=== PATIENT | female | born 2005 | race Native Hawaiian/Other Pacific Islander ===

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

== ENCOUNTER 2023-02-14 11:02 | Emergency (ER) | payer OTHER ==
[~2023-02-14] VITALS: Ht 165.1 cm; Wt 63.5 kg
[~2023-02-14 11:02] MED LIST: Amoxicillin500 M1 PO; BENMENLOZ PO; VALA500 PO
[2023-02-14 11:30] VITALS: BP 118/86
[2023-02-14] MEDS ORDERED: CLIN300 PO (15:06)
== END 2023-02-14 15:11 | disposition home or self-care (01) ==
LOC: ER 11:02
DX: J02.9 Acute pharyngitis, unspecified (principal); Z98.890 Other specified postprocedural states
CPT/HCPCS: 99282

== ENCOUNTER → 2024-09-23 | Outpatient (CLI) | payer OTHER ==
[~2024-09-23] MED LIST changes: +CLIN300 PO
[2024-09-23 10:21] LABS: Source, Urine Voided
[2024-09-23 11:18] LABS: Bilirubin, Urine Neg (Neg); Glucose Qualitative, Urine Neg (Neg); Ketones, Urine Neg (Neg); Leukocyte Esterase, Urine 3+ (Neg); Protein, Urine 2+ (Neg); Specific Gravity, Urine 1.010 (1.003-1.022); Urobilinogen, Urine NORM (Normal)
[2024-09-23 12:00] LABS: Color, Urine Pale Yellow (P-Yellow)
[2024-09-23 12:01] LABS: White Blood Cells, Urine 25-50 /hpf (0-5)
== END ==
LOC: LAB SHORT 10:19 → LAB 10:19
PROVIDERS: Advanced Practice Midwife
DX: R39.9 Unspecified symptoms and signs involving the genitourinary system (principal)
CPT/HCPCS: 81001; 87077; 87086; 87186

== ENCOUNTER → 2024-11-08 | Outpatient (CLI) | payer OTHER ==
[2024-11-10 11:36] LABS: C. TRACHOMATIS BY TMA,THINPREP Negative (Negative); N. GONORRHOEAE BY TMA,THINPREP Negative (Negative)
== END ==
LOC: LAB 12:34 → LAB SHORT 12:34
PROVIDERS: Advanced Practice Midwife
DX: Z11.3 Encounter for screening for infections with a predominantly sexual mode of transmission (principal)
CPT/HCPCS: 87491; 87591; G0145

== ENCOUNTER → 2024-11-19 | Outpatient (CLI) | payer OTHER ==
[2024-11-19 18:17] LABS: Source, Urine Clean Catch
[2024-11-19 19:27] LABS: Bilirubin, Urine Neg (Neg); Glucose Qualitative, Urine Neg (Neg); Ketones, Urine Neg (Neg); Leukocyte Esterase, Urine Neg (Neg); Protein, Urine Neg (Neg); Specific Gravity, Urine 1.010 (1.003-1.022); Urobilinogen, Urine NORM (Normal)
[2024-11-19 19:38] LABS: Color, Urine Pale Yellow (P-Yellow)
== END ==
LOC: LAB 18:16 → LAB SHORT 18:16
PROVIDERS: Advanced Practice Midwife
DX: R39.9 Unspecified symptoms and signs involving the genitourinary system (principal)
CPT/HCPCS: 81003

== ENCOUNTER → 2025-01-19 | Outpatient (CLI) | payer OTHER ==
[2025-01-19 19:15] LABS: Bacterial Vaginosis PCR Negative (NEGATIVE); Candida Group, PCR NOT DETECTED (NOT DETECT); Candida glabrata-krusei, PCR NOT DETECTED (NOT DETECT)
[2025-01-20 16:03] LABS: Chlamydia Trachomatis Vaginal NOT DETECTED (NOT DETECT); Neisseria Gonorrhoea Vaginal NOT DETECTED (NOT DETECT)
== END ==
LOC: LAB SHORT 16:04 → LAB 16:04
PROVIDERS: Advanced Practice Midwife
DX: N76.0 Acute vaginitis (principal); Z11.3 Encounter for screening for infections with a predominantly sexual mode of transmission
CPT/HCPCS: 81515; 87491; 87591

== ENCOUNTER 2025-02-16 22:08 | Inpatient (IN) | payer OTHER ==
[~2025-02-16] VITALS: Ht 165.1 cm; Wt 59.0 kg
[2025-02-16] MEDS ORDERED: Albuterol 2.5 MG/3 ML VIAL INH SCH (22:45)
[2025-02-16] MEDS ORDERED: Magnesium Sulf 2 GM/Water 50ML 50 ML IV ONE (23:45)
[2025-02-16] MEDS ORDERED: Dexamethasone Sod Phos 10 MG/ML 1ML VIAL PO ONE (23:50)
[2025-02-17] MEDS ORDERED: FLU VACC TS2025-26(6MOS UP)/PF 45 MCG/0.5 ML SYRINGE IM SCH (00:35)
[2025-02-17] MEDS ORDERED: Ondansetron HCl 2 MG / ML 2ML Vial IV PRN (00:35)
[2025-02-17] MEDS ORDERED: NS 1,000 ML IV SCH (00:35)
[2025-02-17] MEDS ORDERED: Ipratropium/Albuterol SulF 2.5-0.5MG/3 ML Amp INH PRN (00:35)
[2025-02-17] MEDS ORDERED: Insulin Glargine-Yfgn 100 Unit/mL 3 ML SYR SC SCH (01:00)
[2025-02-17] MEDS ORDERED: INSULANI SC (01:10)
[2025-02-17] MEDS ORDERED: ALBU90OI INH (01:10)
[2025-02-17 01:26] LABS: Alanine Aminotransfer (ALT/SGP 28.0 U/L (12-78); Albumin, Blood 4.5 g/dL (3.4-5.0); Albumin/Globulin Ratio 1.2 (0.8-1.8); Anion Gap 10.0 mmol/L (3-11); Aspartate Aminotrans (AST/SGOT 25.0 U/L (12-37); Bilirubin, Total 0.4 mg/dL (0.1-1.0); Blood Urea Nitrogen 10.0 mg/dL (8-24); CO2, Blood 24.0 mmol/L (21-32); Calcium, Blood 9.7 mg/dL (8.5-10.1); Chloride, Blood 107.0 mmol/L (98-108); Creatinine, Blood 0.63 mg/dL (0.40-1.00); Globulin, Blood 3.7 g/dL (2.2-4.0); Glucose, Blood 105.0 mg/dL (70-99); Potassium, Blood 4.1 mmol/L (3.5-5.5); Sodium, Blood 137.0 mmol/L (136-145); Total Protein, Blood 8.2 g/dL (6.4-8.2)
[2025-02-17 01:35] LABS: BASOPHILS ABSOLUTE AUTO 0.16 K/mm3 (0.00-0.23); BASOPHILS PERCENT AUTO 1 % (0-2); EOSINOPHILS ABSOLUTE AUTO 1.78 K/mm3 (0.00-0.68); EOSINOPHILS PERCENT AUTO 11 % (0-6); Hematocrit 39.4 % (33.0-51.0); Hemoglobin 13.2 g/dL (11.5-16.0); IMMATURE GRAN ABSOLUTE AUTO 0.04 K/mm3 (0.00-0.10); IMMATURE GRAN PERCENT AUTO 0 % (0-1); LYMPHOCYTES ABSOLUTE AUTO 1.82 K/mm3 (0.84-5.20); LYMPHOCYTES PERCENT AUTO 11 % (21-46); MONOCYTES ABSOLUTE AUTO 0.78 K/mm3 (0.16-1.47); MONOCYTES PERCENT AUTO 5 % (4-13); Mean Corpuscular HGB Conc 33.5 g/dL (31.5-36.5); Mean Corpuscular Volume 89 fL (80-100); NEUTROPHILS ABSOLUTE AUTO 12.32 K/mm3 (1.96-9.15); NEUTROPHILS PERCENT AUTO 73 % (41-73); NRBC ABSOLUTE 0.00 K/mm3 (0.00-0.02); NRBC Auto 0.0 /100 WBC (0.0-0.2); Platelet Count 399 K/mm3 (150-400); RDW Coefficient Variation 12.6 % (11.7-14.2); RDW Standard Deviation 41.6 fL (35.1-46.3)
--- NOTE | 2025-02-17 01:55 | NUR ---
ADMIT NOTE: PT ARRIVED FROM THE ED VIA WHEELCHAIR WITH RN. PT VOIDED INDPENDANTLY UPON ARRIVAL. PT IS AOX4 AND IND. PT TRANSFERED TO BED BY HERSELF. PT ON RM AIR. VS AND WT TAKEN. CHARGE NURSE NOTIFIED OF PTS ARRIVAL. PT HAS THEIR OWN OMNIPOD (INSULIN PUMP). ORDER NEEDED FOR OWN PUMP.
[2025-02-17 01:59] VITALS: BP 125/78
--- NOTE | 2025-02-17 02:47 | NUR ---
NOTE: NIGHT DOCTOR CALLED ABOUT PT WANTING TO USE THEIR OWN OMNI PUMP. OKAYED THE USE OF HER OWN INSULIN AND PUMP. HE ALSO OKAYED FOR HER TO BOLUS LIKE SHE CURRENTLY DOES. DOCTOR ORDERED TO DC THE CURRENT INSULIN IN THE EMAR.
[2025-02-17] MEDS ORDERED: Insulin Pump Cartridge MISC SC SCH (04:25)
--- NOTE | 2025-02-17 05:13 | NUR ---
Note: PT SIGNED AT HOME INSULIN PUMP USE FORM. THIS [employer] EQUIPMENT REPAIRER WENT OVER FORM WITH PT AND PT STATED THEY UNDERSTOOD. FORM SIGNED BY THIS [employer] EQUIPMENT REPAIRER AND PT AND PLACED IN THE FRONT OF CHART. PTS AT HOME INSULIN SENT OFF TO PHARMACY TO BE VERIFIED.
--- NOTE | 2025-02-17 05:45 | NUR ---
SHIFT SUMMARY: PT IS IND IN ROOM AND VOIDING SEVERAL TIMES SINCE SHE HAS BEEN HERE ON THE MEDICAL FLOOR. PT IS HER AT HOME OMNIPOD INSULIN PUMP IN PLACE ON THE LEFT ARM. AT HOME INSULIN SENT TO PHARMACY.
[2025-02-17 05:50] LABS: Influenza A, PCR NEGATIVE (NEGATIVE); Influenza B, PCR NEGATIVE (NEGATIVE); Resp Syncytial Virus, PCR NEGATIVE (NEGATIVE); SARS-Cov-2 (COVID-19) PCR, MMC NEGATIVE (NEGATIVE)
--- NOTE | 2025-02-17 05:50 | NUR ---
TELE MONITOR EVALUATED. PT IS IN SINUS RHYTHM RATE 72. PT HAS CONTROL CLERK AUDITING CHEST PAIN.
[2025-02-17] MEDS ORDERED: Insulin Human Lispro 100 Units/ML 3ML Syringe SC SCH (07:30)
[2025-02-17 07:37] VITALS: BP 130/68
[2025-02-17] MEDS ORDERED: Enoxaparin 40 MG/0.4 ML SYR SC SCH (09:00)
[2025-02-17] MEDS ORDERED: Albuterol 2.5 MG/3 ML VIAL ONE (14:51)
[2025-02-17] MEDS ORDERED: Albuterol 2.5 MG/3 ML VIAL INH PRN (15:00)
[2025-02-17 16:41] VITALS: BP 124/66
--- NOTE | 2025-02-17 17:11 | NUR ---
End of shift summary: Patient is alert and oriented x4; pleasant and cooperative with care. Patient with continued SOB and wheezing and RT in place for tx. Patient up to shower today. All medications administered per EMAR. Patient remains independent in room and call appopriately. Bed in lowest position and call light within reach. Will continue ambrosio onitor until next shift nurse arrives and report is given.
[2025-02-17 19:32] VITALS: BP 147/86
[2025-02-17] MEDS ORDERED: Lactobacil 2-S.Thermo-Bifido 1 1 Cap PO SCH (21:00)
[2025-02-17] MEDS ORDERED: DEXTROMETHORPHAN/BENZOCAINE 1 EACH LOZENGE MT PRN (22:15)
[2025-02-18 00:08] VITALS: BP 136/92
[2025-02-18 03:10] VITALS: BP 126/66
[2025-02-18 05:29] LABS: BASOPHILS ABSOLUTE AUTO 0.02 K/mm3 (0.00-0.23); BASOPHILS PERCENT AUTO 0 % (0-2); EOSINOPHILS ABSOLUTE AUTO 0.02 K/mm3 (0.00-0.68); EOSINOPHILS PERCENT AUTO 0 % (0-6); Hematocrit 37.6 % (33.0-51.0); Hemoglobin 13.0 g/dL (11.5-16.0); IMMATURE GRAN ABSOLUTE AUTO 0.08 K/mm3 (0.00-0.10); IMMATURE GRAN PERCENT AUTO 1 % (0-1); LYMPHOCYTES ABSOLUTE AUTO 0.80 K/mm3 (0.84-5.20); LYMPHOCYTES PERCENT AUTO 5 % (21-46); MONOCYTES ABSOLUTE AUTO 0.58 K/mm3 (0.16-1.47); MONOCYTES PERCENT AUTO 4 % (4-13); Mean Corpuscular HGB Conc 34.6 g/dL (31.5-36.5); Mean Corpuscular Volume 88 fL (80-100); NEUTROPHILS ABSOLUTE AUTO 14.68 K/mm3 (1.96-9.15); NEUTROPHILS PERCENT AUTO 91 % (41-73); NRBC ABSOLUTE 0.00 K/mm3 (0.00-0.02); NRBC Auto 0.0 /100 WBC (0.0-0.2); Platelet Count 406 K/mm3 (150-400); RDW Coefficient Variation 13.0 % (11.7-14.2); RDW Standard Deviation 41.9 fL (35.1-46.3)
[2025-02-18 06:12] LABS: Alanine Aminotransfer (ALT/SGP 22.0 U/L (12-78); Albumin, Blood 3.7 g/dL (3.4-5.0); Albumin/Globulin Ratio 1.0 (0.8-1.8); Anion Gap 9.0 mmol/L (3-11); Aspartate Aminotrans (AST/SGOT 15.0 U/L (12-37); Bilirubin, Total 0.3 mg/dL (0.1-1.0); Blood Urea Nitrogen 10.0 mg/dL (8-24); CO2, Blood 22.0 mmol/L (21-32); Calcium, Blood 9.1 mg/dL (8.5-10.1); Chloride, Blood 108.0 mmol/L (98-108); Creatinine, Blood 0.61 mg/dL (0.40-1.00); Globulin, Blood 3.6 g/dL (2.2-4.0); Glucose, Blood 157.0 mg/dL (70-99); Magnesium, Blood 2.0 mg/dL (1.6-2.4); Phosphorus, Blood 3.4 mg/dL (2.5-4.9); Potassium, Blood 4.4 mmol/L (3.5-5.5); Sodium, Blood 135.0 mmol/L (136-145); Total Protein, Blood 7.3 g/dL (6.4-8.2)
--- NOTE | 2025-02-18 07:30 | NUR ---
A/Ox4, SINUS TACH RHYTHM, OTHER VSS ON RA. MD CONTACTED FOR SUSTAINED HR IN 130s AT REST, 150s WITH EXERTION. PT REPORTS CHEST TIGHTNESS; NEBULIZERS EFFECTIVE. PRN ZOFRAN GIVEN FOR NAUSEA, 50 ML EMESIS NOTED. PT REPORTS FEELING ANXIOUS AND "JITTERY" WITH MORNING DOSE OF SOLU-MEDROL. UP AD VERO IN ROOM. CALL LIGHT IN REACH.
[2025-02-18 07:47] VITALS: BP 134/85
[2025-02-18] MEDS ORDERED: Ipratropium/Albuterol SulF 2.5-0.5MG/3 ML Amp INH SCH (14:00)
[2025-02-18 14:49] VITALS: BP 147/87
--- NOTE | 2025-02-18 17:05 | NUR ---
SHIFT SUMMARY: A&OX4 THROUGHOUT SHIFT. PLEASANT AND COOPERATIVE WITH CARE. PT HR HAD MULTIPLE RUNS IN THE 130s-140s. PT DENIES CHEST PAIN/DISCOMFORT. STATES HER "CHEST TIGHTNESS FEELS BETTER TODAY WITH THE BREATHING TREATMENTS". NO ACUTE CHANGES/EVENTS. LYING IN BED AT THIS TIME. BED LOCKED AND IN THE LOWEST POSITION. CALL LT WITHIN REACH.
[2025-02-18 20:30] VITALS: BP 134/85
[2025-02-19 00:38] VITALS: BP 141/85
[2025-02-19 04:06] VITALS: BP 142/68
--- NOTE | 2025-02-19 06:48 | NUR ---
SHIFT SUMMARY; PT A/OX4 AND IS INDEPENDENT IN THE ROOM. UPON ASCULATATION, LUNG SOUNDS HAVE EXPIRATORY WHEEZE IN ALL MILLS. PT W/ S/SXS OF CHEST TIGHTNESS AND COUGH THAT HAS LESSENED AFTER BREATHING TX AND LOZENGER. O2 SAT READINGS REMAIN BETWEEN 91-93%. PT CONTINUES TO MANAGE HER TYPE 1 DM W/ HER INSULIN PUMP W/ GOOD COMMUNICATION W/ STAFF. VSS. TELE READING AT SR AT 89 BPM W/ OCCASIONAL TACHYCARDIA. BED IN LOWEST POSITION AND CALL LIGHT WITHIN REACH.
[2025-02-19 07:54] VITALS: BP 129/85
[2025-02-19 11:44] VITALS: BP 138/89
[2025-02-19] MEDS ORDERED: IPRAT-ALBUT 0.5-3 ML INH (14:17)
[2025-02-19] MEDS ORDERED: Prednisone10 MG PO (14:17)
[2025-02-19] MEDS ORDERED: Nicoderm Cq1 EAC1 TOP (14:18)
[2025-02-19] MEDS ORDERED: INSULIN PUMP (14:19)
[2025-02-19] MEDS ORDERED: VISBIOME 112.51 EACH PO (14:20)
[2025-02-19] MEDS ORDERED: FLUT1DIS8 INH (15:52)
--- NOTE | 2025-02-19 16:06 | NUR ---
PT DISCHARGED HOME. NEW RX SENT TO [facility]. DISCHARGE INSTRUCTIONS REVIEWED WITH PT, PT VERBALIZES UNDERSTANDING. PT REPORTS SHE ALREADY HAS A FOLLOW UP APPOINTMENT WITH PCP. CNA2 REMOVED PIV, SITE APPEARS WNL. PT DENIES WC AT TIME OF DISCHARGE, PT WALKED TO ELEVATOR ACCOMPANIED BY RN.
== END 2025-02-19 16:00 | disposition home or self-care (01) | DRG 203 ==
LOC: ER 22:08 → MEDS 22:09 → ENPENDDIS 02-19 13:28 → MEDS 02-19 16:00
PROVIDERS: Hospitalist; ADMIT Internal Medicine
DX: J45.901 Unspecified asthma with (acute) exacerbation (principal); E10.9 Type 1 diabetes mellitus without complications; E28.2 Polycystic ovarian syndrome; F17.290 Nicotine dependence, other tobacco product, uncomplicated; D72.829 Elevated white blood cell count, unspecified; T38.0X5A Adverse effect of glucocorticoids and synthetic analogues, initial encounter; Z96.41 Presence of insulin pump (external) (internal); Z79.4 Long term (current) use of insulin
CPT/HCPCS: 36415; 71046; 80053; 82947; 83735; 83880; 84100; 84145; 85025; 87637; 93005; 93010; 94640; 94664; 94760; 96365; 96375; 99285-25; A9270; G0378; J0456; J1100; J1650; J1815; J2405; J2919; J3475; J7030; J7050